=== PATIENT | female | born 2000 | race Hispanic/Latino ===

== ENCOUNTER 2023-09-09 21:42 | Inpatient (IN) | payer SELFPAY ==
[2023-09-09] MEDS ORDERED: Ondansetron PF 4 MG/2 ML Vial ONE (22:39)
[2023-09-09] MEDS ORDERED: Famotidine/PF 20 mg/2ml Vial ONE (22:40)
[2023-09-09 22:45] LABS: #Basophils 0.05 10x3/uL (0.0-0.2); %Basophils 0.5 % (0.0-1.0); %Eosinophils 1.9 % (0.0-10.0); %Lymphocytes 32.9 % (21.0-51.0); %Monocytes 7.8 % (0.0-10.0); %Neutrophils 56.7 % (42.0-75.0); Hematocrit 42.8 % (36.0-47.0); Hemoglobin 14.7 g/dL (12.0-16.0); Mean Corpuscular HGB CONC 34.3 g/dL (32.0-36.0); Mean Corpuscular Hemoglobin 29.5 pg (27.0-31.0); Mean Corpuscular Volume 85.8 fL (78.0-98.0); Mean Platelet Volume 9.8 fL (7.4-10.4); Platelet Count 331 10x3/uL (130-400); RBC Distribution Width 12.6 % (11.5-14.5); Red Blood Cell (RBC) Count 4.99 mill/uL (4.20-5.40)
[2023-09-09 22:57] LABS: BHCG - Serum Negative (NEGATIVE); Pregs Control Background? CLEAR/WHITE (CLR/WHITE); Pregs Control Bar Appear? YES (CONTROL BAR)
[2023-09-09 23:04] LABS: ALT (SGPT) 57 U/L (8-55); AST (SGOT) 32 U/L (5-34); Albumin 4.5 g/dL (3.5-5.0); Alkaline Phosphatase 94 U/L (40-110); Anion Gap 12 mmol/L (10-20); BUN (Urea Nitrogen) 16 mg/dL (7.0-18.7); Bilirubin, Total 0.4 mg/dL (0.2-1.2); Calc. Creatinine Clearance 0 mL/min (70-130); Calcium 10.4 mg/dL (7.8-10.44); Carbon Dioxide 27 mmol/L (22-29); Chloride 103 mmol/L (98-107); Estimated GFR 82; Glucose 91 mg/dL (70-105); Lipase 30 U/L (8-78); Potassium 4.1 mmol/L (3.5-5.1); Protein, Total 8.5 g/dL (6.0-8.3); Sodium 138 mmol/L (136-145)
[2023-09-09] MEDS ORDERED: Sodium Chloride 0.9% 100 ML ONE (23:20)
[2023-09-09] MEDS ORDERED: Piperacillin/Tazobactam 3.375 GM VIAL ONE (23:20)
[2023-09-09] MEDS ORDERED: Morphine 4 MG/ML VIAL ONE (23:26)
[2023-09-10] MEDS ORDERED: Promethazine HCl 25 MG/ML VIAL IM PRN ×2 (02:05→12:39)
[2023-09-10] MEDS ORDERED: Calcium Carbonate 500 MG ChewTAB PO PRN ×2 (02:05→12:58)
[2023-09-10] MEDS ORDERED: hydrALAZINE 20 MG/ML VIAL SLOW IVP PRN (02:05)
[2023-09-10] MEDS ORDERED: Mag-Al 1200 mg/1200 mg/30 ML UDCUP PO PRN (02:05)
[2023-09-10] MEDS ORDERED: Acetaminophen 325 MG TAB PO PRN (02:05)
[2023-09-10] MEDS ORDERED: Ondansetron PF 4 MG/2 ML Vial IVP PRN ×2 (02:05→12:58)
[2023-09-10] MEDS ORDERED: HYDROcodone/Acetaminophen 7.5/325 mg Tablet PO PRN (02:12)
[2023-09-10 04:27] VITALS: BMI 43.2
[2023-09-10] MEDS: Lactated Ringer's 1,000 ML IV SCH (04:33)
[2023-09-10] MEDS: Ketorolac Tromethamine 30 MG (1 mL) VIAL IVP PRN (04:33)
[2023-09-10 05:14] LABS: #Basophils 0.04 10x3/uL (0.0-0.2); %Basophils 0.4 % (0.0-1.0); %Eosinophils 2.1 % (0.0-10.0); %Lymphocytes 36.2 % (21.0-51.0); %Monocytes 9.3 % (0.0-10.0); %Neutrophils 51.8 % (42.0-75.0); Hematocrit 39.1 % (36.0-47.0); Hemoglobin 13.1 g/dL (12.0-16.0); Mean Corpuscular HGB CONC 33.5 g/dL (32.0-36.0); Mean Corpuscular Hemoglobin 29.3 pg (27.0-31.0); Mean Corpuscular Volume 87.5 fL (78.0-98.0); Mean Platelet Volume 9.9 fL (7.4-10.4); Platelet Count 306 10x3/uL (130-400); RBC Distribution Width 12.7 % (11.5-14.5); Red Blood Cell (RBC) Count 4.47 mill/uL (4.20-5.40)
[2023-09-10 05:43] LABS: ALT (SGPT) 64 U/L (8-55); AST (SGOT) 53 U/L (5-34); Albumin 3.9 g/dL (3.5-5.0); Alkaline Phosphatase 84 U/L (40-110); BUN (Urea Nitrogen) 16 mg/dL (7.0-18.7); Bilirubin, Total 0.5 mg/dL (0.2-1.2); Calc. Creatinine Clearance 185 mL/min (70-130); Calcium 9.1 mg/dL (7.8-10.44); Carbon Dioxide 25 mmol/L (22-29); Estimated GFR 102; Globulin 3.3 g/dL (2.4-3.5); Glucose 93 mg/dL (70-105); Protein, Total 7.2 g/dL (6.0-8.3)
[2023-09-10 06:03] LABS: Anion Gap 13 mmol/L (10-20); Chloride 106 mmol/L (98-107); Potassium 3.7 mmol/L (3.5-5.1); Sodium 139 mmol/L (136-145)
[2023-09-10] MEDS ORDERED: Rocuronium Bromide 10 MG/ML (10ML VIAL) ONE (09:18)
[2023-09-10] MEDS ORDERED: Lidocaine 2% PF 5 ML VIAL ONE (09:18)
[2023-09-10] MEDS ORDERED: Ondansetron PF 4 MG/2 ML Vial ONE (09:18)
[2023-09-10] MEDS ORDERED: Lidocaine 2% 6 ML (Jelly) SYR ONE (09:18)
[2023-09-10] MEDS ORDERED: Dexamethasone 4 mg/ml Vial ONE (09:18)
[2023-09-10] MEDS ORDERED: PROPOFOL 20 ML ONE (09:19)
[2023-09-10] MEDS ORDERED: Midazolam HCl 2 mg/2 ml Vial ONE (09:19)
[2023-09-10] MEDS ORDERED: Fentanyl 250 MCG/5 ML VIAL ONE (09:19)
[2023-09-10] MEDS ORDERED: EPINEPHrine 1 MG/ML VIAL ONE (09:29)
[2023-09-10] MEDS ORDERED: Bupivacaine 0.25% HCL 30 ML VIAL ONE (09:29)
[2023-09-10] MEDS ORDERED: Indocyanine Green 25 MG/10 ML VIAL ONE (10:17)
[2023-09-10] MEDS ORDERED: CEFAZOLIN 2 GM VIAL ONE (10:38)
[2023-09-10] MEDS ORDERED: Sodium Chloride 0.9% 100 ML ONE (10:38)
[2023-09-10] MEDS: Famotidine 20 MG TAB PO SCH ×2 (11:00→21:16)
[2023-09-10] MEDS: Indocyanine Green 25 MG/10 ML VIAL IVP SCH (11:01)
[2023-09-10] MEDS ORDERED: ePHEDrine Sulfate 50 MG/10 ML VIAL ONE (11:14)
[2023-09-10] MEDS ORDERED: SUGAMMADEX SODIUM 200 MG/2 ML VIAL ONE (12:01)
[2023-09-10] MEDS ORDERED: HYDROmorphone 2 MG/ML VIAL SLOW IVP PRN (12:39)
[2023-09-10] MEDS ORDERED: fentaNYL 50 mcg/mL 1 mL Vial ONE ×3 (12:39→13:39)
[2023-09-10] MEDS ORDERED: Ondansetron HCl/PF 4 MG/2 ML Vial IVP PRN (12:39)
[2023-09-10] MEDS ORDERED: Promethazine HCl 25 MG/ML VIAL ONE (12:42)
[2023-09-10] MEDS ORDERED: Glucagon 1 MG/ML KIT IM PRN (12:58)
[2023-09-10] MEDS ORDERED: Dextrose 50% Abboject 50 ML SYRINGE SLOW IVP PRN (12:58)
[2023-09-10] MEDS ORDERED: Dextrose 5% in Water 1,000 ML IV PRN (12:58)
[2023-09-10] MEDS: Morphine 4 MG/ML VIAL SLOW IVP PRN (14:54)
[2023-09-10] MEDS: Ketorolac Tromethamine 30 MG (1 mL) VIAL IVP SCH (17:03)
[2023-09-10] MEDS: D5 1/2 NS w/20 mEq KCL 1,000 ML IV SCH (17:06)
[2023-09-10] MEDS: HYDROcodone/Acetaminophen 10/325 mg Tablet PO PRN (18:17)
[2023-09-10] MEDS: Docusate 100 MG CAP PO SCH (21:16)
[2023-09-11] MEDS: Enoxaparin 30 MG (0.3 mL) SYRINGE SC SCH (09:11)
[2023-09-11 12:22] VITALS: BP 107/73; TEMP 97.5
== END 2023-09-11 12:20 | disposition home or self-care (01) | DRG 418 ==
LOC: ERS 21:42 → SURG B 09-10 02:05 → OBSVTOIN 09-10 12:58
PROVIDERS: ADMIT Surgery; ATTEND Surgery
PROC: 0FT44ZZ Resection of Gallbladder, Percutaneous Endoscopic Approach (ICD-10-PCS; principal; 2023-09-10)
PROC: BF13YZZ Fluoroscopy of Gallbladder and Bile Ducts using Other Contrast (ICD-10-PCS; 2023-09-10)
PROC: 8E0W4CZ Robotic Assisted Procedure of Trunk Region, Percutaneous Endoscopic Approach (ICD-10-PCS; 2023-09-10)
DX: K80.10 Calculus of gallbladder with chronic cholecystitis without obstruction (principal); Z68.41 Body mass index [BMI] 40.0-44.9, adult; E66.9 Obesity, unspecified
CPT/HCPCS: 36415; 76705; 80053; 83690; 84703; 85025; 88304; 93005; 96374; C1889; G0378; J0171; J0665; J1100; J1650; J1885; J2001; J2250; J2272; J2405; J2543; J2550; J2704; J3010; J3480; J7120